=== PATIENT | female | born 1945 | race Caucasian/White ===

== ENCOUNTER → 2017-08-07 | Outpatient (CLI) | payer OTHER, BC ==
[~2017-08-07] MED LIST: BNT10; CPR500; EZET10TA38; HYDC25; LISI40TA; METR-163; PRM/45; REVIEWED; [UNRECOGNIZED DRUG - CODE]
--- NOTE | 2017-08-08 05:44 | PAP/PSG TECHNICIAN REPORT ---
[facility] [employer] Polysomnogram Report Study name: None Report date: 08/08/2017 Study date: 08/07/2017 Referring Physician: Yvette Escobar Name: HASEEB DILL Interpreting Physician: Guillermina Black M.D. Date of : 1945 [employer]: Judith Gruber, PSGT. Sex: Female Age: 72 StudyType: PSG Weight: 165 lbs Height: 72 years, Height 5' 2" Neck Circum:13.5 inches BMI: 30.18 Medications: Ambien 10 mg, Amlodipine 5 mg, Lipitor 40 mg, B complex, Dicyclomine 10 mg, Grape Seed, Lasix 20 mg, Mag-ox 400 mg, Potassium 10 meq, Premarin 0.3 mg, Trazadone 50 mg, Viberzi 75 mg, Vit.-D3, Vit.-E, [id number] MG. Patient History 72 yr. old female presents with excessive daytime sleepiness, snoring, CHF, HTN, HLD,Split Night Study >15 two hr.'s Ess = 10, Neck = 13.5 inches Parameters Monitored NPSG: E1-M2, E2-M1, Fp1-M2, Fp2-M1, F3-M2, F4-M2, F4-M1, C3-M2, C4-M2, C4-M1, O1-M2, O2-M2, O2-M1, T3-M2, T4-M1, P3-M2, P4-M1, CHIN1, CHIN2, HR, EKG, Legs, PFLOW, SNOR, FLOW, CFLOW, Tidal Volume, THOR, ABDO, SpO2, PLTH, CPRESS, ETCO2 Wave, ETCO2, pH Sleep Architecture Sleep Stages Time at Lights Off 8:57:04 PM STAGES Time (min.) TST (%) Time at Lights On 5:29:04 AM Wake 103.0 -- Total Recording Time (TRT) 513.50 min. N1 12.0 3 Total Sleep Period (TSP) 495.5 min. N2 326.0 80 Total Sleep Time (TST) 409.0min. N3 0.0 0 Awake Time 104.5 min. REM 71.0 17 Wake after Sleep Onset 87.0 min. Sleep Efficiency (SE) 80 % Sleep Onset Latency (OLIVIA) 16.0 min. Number of Stage 1 Shifts None Awakenings 18 Stage Changes 57 Number of REM periods 5 REM 71.0 17 REM Latency 187.0 min. NREM 338.0 83 Body Position Analysis Supine Right Left Side Prone Vertical Total Sleep Time (min.) 118.6 202.9 119.5 322.38 0.0 0.0 Total Sleep Time (%) 21% 50% 29% 79 0% N/A% Total Sleep Time REM (min.) 5.0 52.0 14.0 None 0.0 0.0 Total Sleep Time NREM (min.) 81.6 150.9 105.5 None 0.0 0.0 Intermittent Wake (min.) 32.0 57.3 13.8 None 0.0 0.0 Total Sleep Period (%) 24% None None None None None Arousals Myoclonus (PLM) * Events Count Index Events Count Index Spontaneous 35 5 Events Awake (PLMW) 4 2.3 Respiratory 0 0.0 Events Asleep w/ Arousal (PLMA) 4 0.6 PLM 4 1 Events Asleep w/o Arousal (PLMS) 41 6.0 Snoring 2 0 Total Asleep 45 6.6 Total 41 6 Total 49 6 Respiratory Analysis * CA OA MA CH H RERA Total Count 2 1 0 0 1 0 4 Index 0.3 0.1 0.0 0 0.1 0 0.6 Mean Duration 26.3 12.5 0.0 0.00 13.5 0.0 19.6 Longest Duration 26.4 12.5 0.0 0.00 0.0 0.0 26.4 Respiratory Event Summary Total Supine ~Supine Right Left Prone REM NREM Apneas Count 3 1 2 0 2 N/A 0 3 Index 0.4 1 0 0.0 1.0 N/A 0 1 Hypopneas (4% Desat) Count 1 0 1 1 0 N/A 1 0 Index 0.1 0.0 0 0.3 0.0 N/A 0.8 0.0 Apneas & All Hypopneas Count 4 1 3 1 2 N/A 1 3 Index 0.6 1 1 0 1 N/A 0.8 0.5 Respiratory Events ([employer]+All Hyp+RERA) Count 4 1 3 1 2 N/A 1 3 Index 0.6 1 1 0.3 1.0 N/A 0.8 0.5 Respiratory Related Arousal Count 0 1 0 0 0 N/A 0 0 Index 0.0 0 0 0 0 N/A 0 0 Snoring Analysis Supine Right Left Prone REM NREM Total Snore duration 0.7 min Snores count 0 14 9 N/A 13 10 23 Snore mean duration 1.8 Sec Snores index 0 4 5 N/A 11.0 1.8 3.4 TST with snoring (%) 0.2% SpO2 Analysis Total REM NREM Awake <50% 0.0 min. 0.0 min. 0.0 min. 0.0 min. 51 - 60% 0.0 min. 0.0 min. 0.0 min. 0.0 min. 61 - 70% 0.0 min. 0.0 min. 0.0 min. 0.0 min. 71 - 80% 0.0 min. 0.0 min. 0.0 min. 0.0 min. 81 - 90% 94.3 min. 7.0 min. 76.1 min. 11.2 min. 91 - 100% 406.4 min. 64.0 min. 261.9 min. 80.5 min. Average 92 92 91 92 Minimum SpO2 82 87 87 82 Desaturation Event Index 0.7 0.8 0.9 0.0 # Desat. Events below 89% 1 N/A 1 N/A Time(%) with Saturation below 89% 2.5 0.0 2.3 0.1 Time(min.) with Saturation below 89% 12.3 0.3 11.5 0.6 Heart Rate Analysis End Tidal CO2 Analysis Min (bpm) Max (bpm) Average (bpm) TSP (mins) % of TSP Awake 48 214 61 Above 55 mmHg 0.0 0.0 NREM 47 76 57 50-55 mmHg 0.0 0.0 REM 49 68 57 45-50 mmHg 0.0 0.0 Overall 47 76 57 40-45 mmHg 72.7 17.8 35-40 mmHg 325.5 79.6 30-35 mmHg 4.6 1.1 Average ETCO2 0.1 Supplemental O2 Values Minimum O2 level: None Value Start Time End Time [employer] Comments PSG Study Mrs. Dill slept in the right, left, and supine positions. No cardiac arrhythmia or PLM's noted. No bruxism noted. Snoring was noted and scored as a 1 on a scale of 1 through 5. (0=no snoring, 5=snoring loud enough to be heard through a closed door or down the [address] way) Mrs. Dill awoke to use the restroom one time during the night. Mrs. Dill stated, I did sleep as well as I do when I am in my own bed. The final report will be interpreted and signed by a sleep physician. The completed physician report will then be placed in the patient medical record. Mrs. Dill did not qualify for a split night study. Therapy (cm H2O) 0 TIB (min.) 512.0 TST (min.) 409.0 Sleep Onset (min.) 16.0 REM Onset From Sleep (min.) 187.0 Sleep Efficiency % 80 Wakefulness (%) 20 Wakefulness (min.) 104.5 NREM 1 (%) 3 NREM 1 (min.) 12.0 NREM 2 (%) 80 NREM 2 (min.) 326.0 NREM 3 (%) 0 NREM 3 (min.) 0.0 REM (%) 17 REM (min.) 71.0 # Arousals 41 Arousal Index 6 # Snore 23 Snore Index 3.4 AHI 0.6 AHI Supine 1 AHI Non-Supine 1 NREM AHI 0.5 REM AHI 0.8 RDI 0.6 # Obstructive Apnea 1 # Central Apnea 2 # Mixed Apnea 0 # Hypopneas 1 RERAs 0 Total Respiratory Events 5 Time Below SpO2 89% (min.) 11.7 Mean NREM SpO2 (%) 91 Mean REM SpO2 (%) 92 Mean Sleep SpO2 (%) 92 Min NREM SpO2 (%) 87 Min REM SpO2 (%) 87 Position Supine (min.) 118.6 Position Non-supine (min.) 322.4 LM Index Sleep 6.6 LM Index NREM 5.3 LM Index REM 12.7 Mean Heart Rate (bpm) 57 Min Heart Rate (bpm) 47
--- NOTE | 2017-08-14 13:39 | Sleep Study ---
Sleep Study Report Date of Service: 08/14/2017 Sleep Study Report [facility] Diagnostic Polysomnogram Physician Report . Name: HASEEB STARKS MR#: [id number] Date of : 1945 Study date: 08/07/2017 Report date: 08/14/2017 Study name: PSG Referring Physician: Yvette Escobar Interpreting Physician: Guillermina Black M.D. *NOTICE TO RECEIVING REPUBLICAN AGENCY~this information is strictly Confidential and protected under [place] law.~ [place] law prohibits you from making any further disclosure of this information unless further disclosure is expressly permitted by the written consent of the person to whom it pertains or is authorized by law.~ A general authorization for the release of medical or other information is not sufficient for this purpose.~ Hospital accepts no responsibility if the information is made available to any other person, INCLUDING THE PATIENT. Impression: 1-Primary snoring. If sleep apnea is strongly suspected, a repeat PSG may be indicated given night to night variability in sleep apnea and the possibility of a false negative study. 2-Abnormal sleep architecture likely due to first night effect. Recommendations: Consider weight loss program. . Clinical Background: 72 yr. old female presents with history of HTN, CHF, hyperlipidemia who came with history of excessive daytime sleepiness and snoring. Medications: Ambien , Amlodipine , Lipitor , B complex, Dicyclomine , Grape Seed, Lasix , Mag -ox , Potassium, Premarin , Trazadone , Viberzi , Vit.-D3, Vit.-E, Zyrtec Sleep Architecture: Minutes TRT Total recording time 513.50 Sleep latency 16.0 SPT Sleep Period Time 495.5 WASO Wake time after sleep onset 87.0 TST Total Sleep Time 409.0 R Sleep latency minus wake 187.0 Sleep efficiency 80% Minutes TST SPT Stage N1 12.0 min 3% 2% Stage N2 326.0 min 80% 66% Stage N3 0.0 min 0% 0% Stage R 71.0 min 17% 14% Oxygenation: Min. Sat. Avg. Sat. Awake 82 % 92 % N sleep 87 % 92 % REM 87 % 92 % Overall 82 % 92 % Cardiac Events: Min bpm Max bpm Avg bpm Awake 48 214 61 N sleep 47 76 57 REM 49 68 57 Overall 47 214 57 Movement Events: Index Total PLMs: 45 6.6/hr PLMs associated with arousals 4 0.0/hr Arousals: Index Respiratory related 3 0.4/hr PLM related 4 1/hr Spontaneous 32 5/hr Total 41 6/hr Respiratory Events: Index Central 2 0.3 /hr Obstructive 1 0.1 /hr Mixed 0 0.0 /hr Hypopneas 6 0.9 /hr RERAs 0 0 /hr AHI = Apneas + Hypopneas 9 1.3 /hr RDI = Apneas + Hypopneas +RERAs 9 1.3 /hr Time spent =< 88%: 1 minute Supplemental O2 was utilized for 0 minutes. Comments / Artifact / Quality of the Study The polysomnographic recording quality was satisfactory for interpretation. No significant artifacts were found. Parameters: Following the technical and digital specifications of the [employer] (AASM), a standard diagnostic polysomnogram was performed monitoring EEG, EOG, EMG (chin and leg derivations), oxygen saturation, body position, digital video, respiratory effort and airflow. The sleep Stage and event scoring was based on the AASM Manual for the Scoring of Sleep and Associated Events 2007 edition. Apneas are defined as a drop in the peak thermal sensor excursion by > 90% of baseline for at least 10 seconds. Hypopneas were scored using the 4% oxygen desaturation rule (4A-[employer]) and a decrease in the nasal pressure excursions by > 30% of baseline for at least 10 seconds. Respiratory effort-related arousals (RERAs) are defined as a sequence of breaths lasting at least 10 seconds characterized by increasing respiratory effort or flattening of the nasal pressure waveform leading to an arousal from sleep when the sequence of breaths does not meet criteria for an apnea or hypopnea. Apnea Hypopnea Index (AHI) is defined as the number of apneas and hypopneas occurring in an hour of sleep. Respiratory Disturbance Index (RDI) is defined as the number of apneas, hypopneas, and RERAs occurring in an hour of sleep. Thank you for the courtesy of this referral, Guillermina Black MD Certified Internal/Sleep Medicine
== END | disposition home or self-care (01) ==
LOC: C.NEUR 20:00
PROVIDERS: ATTEND Internal Medicine
DX: G47.33 Obstructive sleep apnea (adult) (pediatric) (principal)